=== PATIENT | male | born 1985 | race Caucasian/White ===

== ENCOUNTER 2017-02-07 22:05 | Emergency (ER) | payer OTHER ==
[~2017-02-07 22:05] MED LIST: ZOFRAN4 M1 PO
[2017-02-07] MEDS ORDERED: PATANOL5 ML OPH (23:14)
[2017-02-07] MEDS ORDERED: POLYTRIM EYE DR10 ML OPH (23:14)
--- NOTE | 2017-02-07 23:15 | ED EYE COMPLAINT ---
History of Present Illness General Chief Complaint: Eye Problems Stated Complaint: EYE PAIN Source: patient Exam Limitations: no limitations Vital Signs & Intake/Output Vital Signs & Intake/Output Vital Signs Date Time Temp Pulse Resp B/P B/P Pulse O2 O2 Flow FiO2 Mean Ox Delivery Rate 02/07 2331 97.9 83 18 120/74 99 02/07 2211 97.8 86 22 128/83 98 Room Air Allergies Coded Allergies: oxycodone (VOMITING, SWEATING 02/07/17) Uncoded Allergies: PET HAIR/DANDER (SNEEZING, ITCHY WATERY EYES, DYSPNEA 10/19/14) Reconcile Medications Olopatadine HCl (Patanol) 0.1 % DROPS 1 GTT OPH BID allergic conjunctivitis Polytrim (Polytrim Eye Drops) 10,000 UNIT-1 MG/ML DROPS 1 GTT OPH Q6 conjunctivitis Triage Note: PER PT WOKE UP AT 2100 BILAT EYES RED PT DENIES INJURY BUT MOTHER ASKED PT IF IT WAS FROM WELDING PT DENIES Triage Nurses Notes Reviewed? yes Onset: Abrupt Duration: day(s):, constant, continues in ED Timing: recent history Injury Environment: home No Modifying Factors: none HPI: 31-year-old male comes into emergency room with bilateral eye redness and burning since waking up after nap. Patient reports that he was working outside earlier today grinding some metal but was wearing safety goggles. He denies any trauma to his eye at that time. Denies any foreign body pieces. His eyes completely fine. He laid down at 7 PM tonight and woke up and his eyes were red bilaterally. Patient does admit that his mother used a new laundry detergent today which she has never used before. Patient reports that he was sleeping into his shirt with his head buried into an his eyes. Into it. He denies any vision loss. Slightly blurry. Denies wearing contacts. Some clear discharge of the eyes and some associated runny nose. Denies any other associated symptoms. (DEVORAH NUNES) Past History Travel History Traveled to [place] past 21 day No Medical History Any Pertinent Medical History? see below for history Neurological: NONE EENT: NONE Cardiovascular: NONE Respiratory: NONE Gastrointestinal: NONE Hepatic: NONE Renal: NONE Musculoskeletal: NONE Psychiatric: NONE Endocrine: NONE Surgical History Surgical History: non-contributory Psychosocial History What is your primary language Ethiopian Tobacco Use: Current Daily Use Daily Tobacco Use Amount/Type: => 5 Cigarettes daily Family History Hx Contributory? No (DEVORAH NUNES) Review of Systems Review of Systems Constitutional: Reports: no symptoms. Eyes: Reports: see HPI. Ear: Reports: no symptoms. Nose: Reports: no symptoms. Mouth: Reports: no symptoms. Throat: Reports: no symptoms. Respiratory: Reports: no symptoms. Cardiovascular: Reports: no symptoms. GI: Reports: no symptoms. Genitourinary: Reports: no symptoms. Musculoskeletal: Reports: no symptoms. Skin: Reports: no symptoms. Neurological/Psychological: Reports: no symptoms. Hematologic/Endocrine: Reports: no symptoms. Immunologic/Allergic: Reports: no symptoms. All Other Systems: Reviewed and Negative (DEVORAH NUNES) Physical Exam General Appearance: well developed/nourished, mild distress General Inspection: Sclera injected Eyelid: normal inspection Conjunctiva/Sclera: injected Cornea: normal inspection, examined w/fluorescein, no abrasion appreciated EOM: intact Pupil: normal accommodation, normal pupil, PERRL General Inspection: sclera injected Eyelid: normal inspection Conjunctiva/Sclera: injected Cornea: examined w/fluorescein, no corneal abrasion appreciated EOM: intact Pupil: normal accommodation, normal pupil, PERRL Physical Exam Head: atraumatic, normal appearance Nose: normal inspection Mouth/Throat: normal mouth inspection Neck: normal inspection, full range of motion Cardiovascular/Respiratory: no respiratory distress Neurologic/Psych: awake, alert, oriented x 3 Skin: intact, normal color (DEVORAH NUNES) Progress Differential Diagnosis: corneal abrasion, corneal foreign body, conjunctivitis, detached retina, glaucoma, globe rupture, retinal art./v. occlusion, allergic conjunctivitis, Plan of Care: Current Medications Sig/Precious Start time Last Medication Dose Stop Time Status Admin Diphenhydramine HCl 50 MG ONCE ONE 02/07 2330 UNVr (Benadryl) 02/07 233102/07/2017 11:28:22 PM Symptoms are most consistent with allergic conjunctivitis. Patient referred to african studies professor his symptoms improved. Patient was instructed to wash all his clothes at home with the old detergent that they used to use. Clinically looks well otherwise. (DEVORAH NUNES) Departure Departure Disposition: HOME OR SELF CARE Condition: Stable Clinical Impression Primary Impression: Allergic conjunctivitis, bilateral Referrals: PATIENT HAS NO PRIMARY CARE DR (PCP/Family) MIGUEL STILES,DORY Tipton Additional Instructions: Use pantanol knowledge and Polytrim drops as prescribed. Take Benadryl at home. Follow-up with african studies professor provided. Return if any other concerns worsening symptoms. Please go over all results of today's visit with your primary care doctor. Contact your primary care doctor to let them know you were here in the emergency room. There may be nonspecific findings which may not be related to your visit today here in the emergency room but may require further evaluation and chronic monitoring by your primary care doctor. If you had a laceration today the chance of foreign body always remains. You should follow-up with your primary care doctor for recheck in 3-5 days for a wound check. If you had an x-ray done there is a chance that a fracture could have been missed on initial read and you should follow-up with your primary care doctor for repeat x-rays if symptoms persist. If your blood pressure was elevated here in the emergency room please have rechecked by her primary care doctor within the next 48 hours by your primary care doctor. If you were prescribed a narcotic here in the emergency room or any type of controlled substances you're not allowed to drive while taking this medication or operate any type of heavy machinery. Narcotics can make you feel lightheaded dizziness nausea and can cause constipation. You may need to pickling solution maker a stool softener. Thank you for choosing [facility] emergency room. Please return to the emergency room immediately if you have any other concerns worsening of symptoms. Departure Forms: Customer Survey General Discharge Information Prescriptions: Current Visit Scripts Olopatadine HCl (Patanol) 1 GTT OPH BID #5 ML Polytrim (Polytrim Eye Drops) 1 GTT OPH Q6 #10 ML (DEVORAH NUNES) PA/[employer]PERVIS[employer] Co-Sign Statement Statement: ED Attending supervision documentation- [] I saw and evaluated the patient. I have also reviewed all the pertinent lab results and diagnostic results. I agree with the findings and the plan of care as documented in the PA's/SUPERVISOR [employer]'s documentation. [X] I have reviewed the ED Record and agree with the PA's/SUPERVIS[employer]'s documentation. [] Additions or exceptions (if any) to the PAs/SUPERVISOR [employer]'s note and plan are summarized below: [] (ARYA STILES,MADDI Vargas)
[2017-02-07 23:31] VITALS: BP 120/74
== END 2017-02-07 23:32 ==
LOC: ERH 22:05
DX: H10.13 Acute atopic conjunctivitis, bilateral (principal)